=== PATIENT | female | born 2000 | race Hispanic/Latino ===

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

== ENCOUNTER 2020-12-02 14:13 | Emergency (ER) | payer SELFPAY ==
[2020-12-02 16:00] VITALS: BP 134/79
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
--- NOTE | 2020-12-02 17:13 | XRay Report ---
RIGHT FOOT 3 VIEWS INDICATION: foot pain/injury/heel pain. COMPARISON: No relevant prior imaging study available. FINDINGS: No acute fracture or dislocation is seen. No foreign bodies. IMPRESSION: 1. No acute findings. Signer Name: Hans Otoole MD Signed: 12/02/2020 5:09 PM Workstation Name: [id number]
== END 2020-12-02 18:47 | disposition home or self-care (01) ==
LOC: ED 14:13
DX: S93.601A Unspecified sprain of right foot, initial encounter (principal); Z79.1 Long term (current) use of non-steroidal anti-inflammatories (NSAID); Z79.899 Other long term (current) drug therapy; X58.XXXA Exposure to other specified factors, initial encounter; Y93.89 Activity, other specified; Y92.89 Other specified places as the place of occurrence of the external cause; Y99.8 Other external cause status

== ENCOUNTER 2021-04-17 15:22 | Emergency (ER) | payer SELFPAY ==
[2021-04-17] MEDS ORDERED: LIDOCAINE VISCOUS 2% 15 ML ORAL LIQD MM ONE (16:34)
[2021-04-17] MEDS ORDERED: ACETAMINOPHEN 500 MG TAB PO ONE (16:34)
[2021-04-17 18:02] VITALS: BP 122/79
--- NOTE | 2021-04-17 18:11 | Emergency Department Report ---
ED ENT HPI - General Chief complaint: Sore Throat Stated complaint: TONSILS SWOLLEN, BODY ACHES Time Seen by Provider: 04/17/21 16:33 Source: patient Mode of arrival: Ambulatory Limitations: No Limitations - History of Present Illness Initial comments: This is a 21-year-old female nontoxic, well nourished in appearance, no acute signs of distress presents to the ED with c/o of sore throat times several days. Patient describes sore throat as sharp. Patient denies any fever, chills, headache, stiff neck, nausea, vomiting, chest pain, shortness of breath, numbness or tingling. Patient denies any drooling or hoarseness. Patient denies any allergies or significant past medical history. MD complaint: sore throat -: days(s) Location: throat Severity: mild Severity scale (0 -10): 3 Quality: aching Consistency: constant Improves with: none Worsens with: swallowing Associated Symptoms: pain with swallowing, sore throat. denies: fever, cough, gum swelling, toothache, tinnitus, hearing loss, discharge from ear, rhinorrhea - Related Data Home Medications Medication Instructions Recorded Confirmed Last Taken Loperamide [Imodium] 2 mg PO 10/07/14 10/07/14 10/07/14 Previous Rx's Medication Instructions Recorded Last Taken Type Hyoscyamine Subl [Levsin Sl] 0.125 mg SL Q4HR PRN #20 tablet 10/08/14 Unknown Rx Fluconazole (Nf) [Diflucan TAB] 150 mg PO ONCE #1 tablet 11/25/18 Unknown Rx metroNIDAZOLE [Metronidazole] 500 mg PO BID #14 tablet 11/25/18 Unknown Rx Acetaminophen [Acetaminophen TAB] 500 mg PO Q6HR #30 tablet 12/02/20 Unknown Rx Ibuprofen [Motrin] 800 mg PO Q8HR PRN #30 tablet 12/02/20 Unknown Rx Naproxen 500 mg PO Q12H PRN #12 tablet 04/17/21 Unknown Rx Nystas/Diphen/Xyl Visc/Mylanta 15 ml MM Q6H PRN 5 Days #1 bottle 04/17/21 Unknown Rx [Magic Mouthwash] Allergies Allergy/AdvReac Type Severity Reaction Status Date / Time No Known Allergies Allergy Verified 04/17/21 15:28 ED Dental HPI - General Chief complaint: Sore Throat Stated complaint: TONSILS SWOLLEN, BODY ACHES Time Seen by Provider: 04/17/21 16:33 Source: patient Mode of arrival: Ambulatory Limitations: No Limitations - Related Data Home Medications Medication Instructions Recorded Confirmed Last Taken Loperamide [Imodium] 2 mg PO 10/07/14 10/07/14 10/07/14 Previous Rx's Medication Instructions Recorded Last Taken Type Hyoscyamine Subl [Levsin Sl] 0.125 mg SL Q4HR PRN #20 tablet 10/08/14 Unknown Rx Fluconazole (Nf) [Diflucan TAB] 150 mg PO ONCE #1 tablet 11/25/18 Unknown Rx metroNIDAZOLE [Metronidazole] 500 mg PO BID #14 tablet 11/25/18 Unknown Rx Acetaminophen [Acetaminophen TAB] 500 mg PO Q6HR #30 tablet 12/02/20 Unknown Rx Ibuprofen [Motrin] 800 mg PO Q8HR PRN #30 tablet 12/02/20 Unknown Rx Naproxen 500 mg PO Q12H PRN #12 tablet 04/17/21 Unknown Rx Nystas/Diphen/Xyl Visc/Mylanta 15 ml MM Q6H PRN 5 Days #1 bottle 04/17/21 Unknown Rx [Magic Mouthwash] Allergies Allergy/AdvReac Type Severity Reaction Status Date / Time No Known Allergies Allergy Verified 04/17/21 15:28 ED Review of Systems ROS: Stated complaint: TONSILS SWOLLEN, BODY ACHES Other details as noted in HPI Comment: All other systems reviewed and negative Constitutional: denies: chills, fever Eyes: denies: eye pain, eye discharge, vision change ENT: throat pain. denies: ear pain Respiratory: denies: cough, shortness of breath, wheezing Cardiovascular: denies: chest pain, palpitations Endocrine: no symptoms reported Gastrointestinal: denies: abdominal pain, nausea, diarrhea Genitourinary: denies: urgency, dysuria, discharge Musculoskeletal: denies: back pain, joint swelling, arthralgia Skin: denies: rash, lesions Neurological: denies: headache, weakness, paresthesias Psychiatric: denies: anxiety, depression Hematological/Lymphatic: denies: easy bleeding, easy bruising ED Past Medical Hx - Social History Smoking Status: Never Smoker Substance Use Type: None - Medications Home Medications: Home Medications Medication Instructions Recorded Confirmed Last Taken Type Loperamide [Imodium] 2 mg PO 10/07/14 10/07/14 10/07/14 History Hyoscyamine Subl [Levsin Sl] 0.125 mg SL Q4HR PRN #20 tablet 10/08/14 Unknown Rx Fluconazole (Nf) [Diflucan TAB] 150 mg PO ONCE #1 tablet 11/25/18 Unknown Rx metroNIDAZOLE [Metronidazole] 500 mg PO BID #14 tablet 11/25/18 Unknown Rx Acetaminophen [Acetaminophen TAB] 500 mg PO Q6HR #30 tablet 12/02/20 Unknown Rx Ibuprofen [Motrin] 800 mg PO Q8HR PRN #30 tablet 12/02/20 Unknown Rx Naproxen 500 mg PO Q12H PRN #12 tablet 04/17/21 Unknown Rx Nystas/Diphen/Xyl Visc/Mylanta 15 ml MM Q6H PRN 5 Days #1 bottle 04/17/21 Unknown Rx [Magic Mouthwash] ED Physical Exam - General Limitations: No Limitations General appearance: alert, in no apparent distress - Head Head exam: Present: atraumatic, normocephalic - Eye Eye exam: Present: normal appearance - Expanded ENT Exam Expanded Ear exam: Present: normal external inspection Mouth exam: Present: normal external inspection, tongue normal. Absent: drooling, trismus, muffled voice Teeth exam: Present: normal inspection Throat exam: Positive: tonsillar erythema, other (uvula midline). Negative: tonsillomegaly, tonsillar exudate, R peritonsillar mass, L peritonsillar mass - Neck Neck exam: Present: normal inspection, full ROM. Absent: tenderness, meningismus, lymphadenopathy - Respiratory Respiratory exam: Absent: respiratory distress - Cardiovascular Cardiovascular Exam: Present: regular rate - Extremities Exam Extremities exam: Present: normal inspection, full ROM, normal capillary refill. Absent: tenderness - Back Exam Back exam: Present: normal inspection, full ROM. Absent: tenderness, CVA tenderness (R), CVA tenderness (L), muscle spasm, paraspinal tenderness, vertebral tenderness, rash noted - Neurological Exam Neurological exam: Present: alert, oriented X3, normal gait - Psychiatric Psychiatric exam: Present: normal affect, normal mood - Skin Skin exam: Present: warm, dry, intact, normal color. Absent: rash ED Course Vital Signs 04/17/21 04/17/21 04/17/21 15:26 18:01 18:04 Temperature 99.1 F 98.9 F 98.9 F Pulse Rate 100 H 67 67 Respiratory 16 12 12 Rate Blood Pressure 122/79 Blood Pressure 137/85 122/79 [Left] O2 Sat by Pulse 95 97 97 Oximetry - Reevaluation(s) Reevaluation #1: 04/17/21 18:09 Patient is speaking in full sentences with no signs of distress noted. ED Medical Decision Making - Lab Data Lab Results 04/17/21 Range/Units Unknown Group A Strep Rapid Negative (Negative) - Medical Decision Making This is a 21-year-old female that presents with viral pharyngitis. Patient is stable was examined by me. There is no drooling. No tonsillar abscess noted. Uvula is midline. Negative strep test and patient is notified of the results with no questions noted by the patient. Vital signs are stable. Patient is not febrile and normal heart rate. Patient was instructed to Follow-up with a primary care doctor in 3-5 days or if symptoms worsen and continue return to emergency room as soon as possible. At time of discharge, the patient does not seem toxic or ill in appearance. No acute signs of distress noted. Patient agrees to discharge treatment plan of care. No further questions noted by the patient. Critical care attestation.: If time is entered above; I have spent that time in minutes in the direct care of this critically ill patient, excluding procedure time. ED Disposition Clinical Impression: Viral pharyngitis Disposition: 01 HOME / SELF CARE / HOMELESS Is pt being admited?: No Does the pt Need Aspirin: No Condition: Stable Instructions: Viral Respiratory Infection, [id number] Additional Instructions: Follow-up with a primary care doctor in 3-5 days or if symptoms worsen and continue return to emergency room as soon as possible. Increased rest, hydration, and take Motrin/Tylenol as prescribed for fever episode. Prescriptions: Nystas/Diphen/Xyl Visc/Mylanta [Magic Mouthwash] 15 ml MM Q6H PRN 5 Days #1 bottle PRN Reason: Sore Throat Naproxen 500 mg PO Q12H PRN #12 tablet PRN Reason: Pain , Severe (7-10) Referrals: PRIMARY MD JOSÉ [Referring] - 3-5 Days EDWARD MUÑOZ MD [Staff Physician] - 3-5 Days Forms: Work/School Release Form(ED) Time of Disposition: 18:10
== END 2021-04-17 18:16 | disposition home or self-care (01) ==
LOC: ED 15:22
DX: J02.8 Acute pharyngitis due to other specified organisms (principal); B97.89 Other viral agents as the cause of diseases classified elsewhere; Z79.899 Other long term (current) drug therapy
CPT/HCPCS: 87116; 87430; 99283

== ENCOUNTER 2022-03-25 11:15 | Emergency (ER) | payer MEDICAID ==
[2022-03-25] MEDS ORDERED: METOCLOPRAMIDE 10 MG/2 ML INJ IV ONE (16:02)
[2022-03-25] MEDS ORDERED: SODIUM CHLORIDE 0.9% 1000 ML 1,000 ML IV ONE (16:02)
--- NOTE | 2022-03-25 16:34 | Emergency Department Report ---
ED N/V/D HPI - General Chief complaint: Nausea/Vomiting/Diarrhea Stated complaint: 7WKS PREG NEED FLUIDS Time Seen by Provider: 03/25/22 16:01 Source: patient Mode of arrival: Ambulatory Limitations: No Limitations - History of Present Illness Initial comments: This is a 22-year-old female nontoxic, well nourished in appearance, no acute signs of distress presents to the ED with c/o of nausea and vomiting several days. Patient describes vomiting as food content. Stated is about is about 7 weeks . Denies any vaginal bleeding. Patient denies any abdominal pain, pelvic pain, flank pain, chest pain, short of breath, fever, chills, headache, stiff neck, numbness or tingling. Patient denies any diarrhea or constipation. Denies any blood in stool. Patient denies any recent travels. Patient denies any drug allergies significant past medical history. MD complaint: nausea, vomiting -: days(s) Associated Abdominal Pain: No Pain Scale: 0 Improves with: none Worsens with: none Associated Symptoms: nausea/vomiting. denies: myalgias, chest pain, cough, diaphoresis, fever/chills, headaches, loss of appetite, malaise, rash, dysuria, shortness of breath, syncope, weakness - Related Data Home Medications Medication Instructions Recorded Confirmed Last Taken Loperamide [Imodium] 2 mg PO 10/07/14 10/07/14 10/07/14 Previous Rx's Medication Instructions Recorded Last Taken Type Hyoscyamine Subl [Levsin Sl] 0.125 mg SL Q4HR PRN #20 tablet 10/08/14 Unknown Rx Fluconazole (Nf) [Diflucan TAB] 150 mg PO ONCE #1 tablet 11/25/18 Unknown Rx metroNIDAZOLE [Metronidazole] 500 mg PO BID #14 tablet 11/25/18 Unknown Rx Acetaminophen [Acetaminophen TAB] 500 mg PO Q6HR #30 tablet 12/02/20 Unknown Rx Ibuprofen [Motrin] 800 mg PO Q8HR PRN #30 tablet 12/02/20 Unknown Rx Naproxen 500 mg PO Q12H PRN #12 tablet 04/17/21 Unknown Rx Nystas/Diphen/Xyl Visc/Mylanta 15 ml MM Q6H PRN 5 Days #1 bottle 04/17/21 Unknown Rx [Magic Mouthwash] Metoclopramide [Reglan] 10 mg PO Q12H PRN #12 tab 03/25/22 Unknown Rx Allergies Allergy/AdvReac Type Severity Reaction Status Date / Time No Known Allergies Allergy Verified 03/25/22 11:36 ED Review of Systems ROS: Stated complaint: 7WKS PREG NEED FLUIDS Other details as noted in HPI Comment: All other systems reviewed and negative Constitutional: denies: chills, fever Eyes: denies: eye pain, eye discharge, vision change ENT: denies: ear pain, throat pain Respiratory: denies: cough, shortness of breath, wheezing Cardiovascular: denies: chest pain, palpitations Endocrine: no symptoms reported Gastrointestinal: nausea, vomiting. denies: abdominal pain, diarrhea, constipation, hematemesis, melena, hematochezia Genitourinary: denies: urgency, dysuria, discharge Musculoskeletal: denies: back pain, joint swelling, arthralgia Skin: denies: rash, lesions Neurological: denies: headache, weakness, paresthesias Psychiatric: denies: anxiety, depression Hematological/Lymphatic: denies: easy bleeding, easy bruising ED Past Medical Hx - Past Medical History Previous Medical History?: No - Surgical History Past Surgical History?: No - Social History Smoking Status: Never Smoker Substance Use Type: None - Medications Home Medications: Home Medications Medication Instructions Recorded Confirmed Last Taken Type Loperamide [Imodium] 2 mg PO 10/07/14 10/07/14 10/07/14 History Hyoscyamine Subl [Levsin Sl] 0.125 mg SL Q4HR PRN #20 tablet 10/08/14 Unknown Rx Fluconazole (Nf) [Diflucan TAB] 150 mg PO ONCE #1 tablet 11/25/18 Unknown Rx metroNIDAZOLE [Metronidazole] 500 mg PO BID #14 tablet 11/25/18 Unknown Rx Acetaminophen [Acetaminophen TAB] 500 mg PO Q6HR #30 tablet 12/02/20 Unknown Rx Ibuprofen [Motrin] 800 mg PO Q8HR PRN #30 tablet 12/02/20 Unknown Rx Naproxen 500 mg PO Q12H PRN #12 tablet 04/17/21 Unknown Rx Nystas/Diphen/Xyl Visc/Mylanta 15 ml MM Q6H PRN 5 Days #1 bottle 04/17/21 Unknown Rx [Magic Mouthwash] Metoclopramide [Reglan] 10 mg PO Q12H PRN #12 tab 03/25/22 Unknown Rx ED Physical Exam - General Limitations: No Limitations General appearance: alert, in no apparent distress - Head Head exam: Present: atraumatic, normocephalic - Eye Eye exam: Present: normal appearance - Neck Neck exam: Present: normal inspection, full ROM. Absent: lymphadenopathy - Respiratory Respiratory exam: Present: normal lung sounds bilaterally. Absent: respiratory distress, wheezes, rales, rhonchi, stridor, chest wall tenderness, accessory muscle use, decreased breath sounds, prolonged expiratory - Cardiovascular Cardiovascular Exam: Present: regular rate, normal rhythm, normal heart sounds. Absent: bradycardia, tachycardia, irregular rhythm, systolic murmur, diastolic murmur, rubs, gallop - GI/Abdominal GI/Abdominal exam: Present: soft, normal bowel sounds. Absent: distended, tenderness, guarding, rebound, rigid, diminished bowel sounds - Extremities Exam Extremities exam: Present: full ROM - Back Exam Back exam: Present: normal inspection, full ROM. Absent: tenderness, CVA tenderness (R), CVA tenderness (L), muscle spasm, paraspinal tenderness, vertebral tenderness, rash noted - Neurological Exam Neurological exam: Present: alert, oriented X3, normal gait - Psychiatric Psychiatric exam: Present: normal affect, normal mood - Skin Skin exam: Present: warm, dry, intact, normal color. Absent: rash ED Course Vital Signs 03/25/22 03/25/22 11:38 18:34 Temperature 98.6 F Pulse Rate 88 63 Respiratory 18 18 Rate Blood Pressure 144/88 104/65 [Right] O2 Sat by Pulse 100 100 Oximetry - Reevaluation(s) Reevaluation #1: 03/25/22 16:31 Patient is speaking in full sentences with no signs of distress noted. ED Medical Decision Making - Lab Data Result diagrams: 03/25/22 16:26 03/25/22 16:26 Lab Results 03/25/22 03/25/22 03/25/22 Range/Units 16:26 16:26 16:26 WBC 9.3 (4.5-11.0) K/mm3 RBC 5.41 H (3.65-5.03) M/mm3 Hgb 16.4 H (10.1-14.3) gm/dl Hct 48.7 H (30.3-42.9) % MCV 90 (79-97) fl MCH 30 (28-32) pg MCHC 34 (30-34) % RDW 12.8 L (13.2-15.2) % Plt Count 235 (140-440) K/mm3 Lymph % (Auto) 22.0 (13.4-35.0) % Wilcox % (Auto) 7.8 H (0.0-7.3) % Eos % (Auto) 0.3 (0.0-4.3) % Baso % (Auto) 1.3 (0.0-1.8) % Lymph # (Auto) 2.0 (1.2-5.4) K/mm3 Wilcox # (Auto) 0.7 (0.0-0.8) K/mm3 Eos # (Auto) 0.0 (0.0-0.4) K/mm3 Baso # (Auto) 0.1 (0.0-0.1) K/mm3 Seg Neutrophils % 68.6 (40.0-70.0) % Seg Neutrophils # 6.4 (1.8-7.7) K/mm3 Sodium 138 (137-145) mmol/L Potassium 3.6 (3.6-5.0) mmol/L Chloride 102.3 (98-107) mmol/L Carbon Dioxide 23 (22-30) mmol/L Anion Gap 16 mmol/L BUN 10 (7-17) mg/dL Creatinine 0.6 (0.6-1.2) mg/dL Estimated GFR > 60 ml/min BUN/Creatinine Ratio 17 % Glucose 85 (65-100) mg/dL Calcium 10.2 (8.4-10.2) mg/dL Total Bilirubin 0.50 (0.1-1.2) mg/dL Direct Bilirubin < 0.2 (0-0.2) mg/dL Indirect Bilirubin 0.3 mg/dL AST 21 (5-40) units/L ALT 20 (7-56) units/L Alkaline Phosphatase 90 (35-129) units/L Total Protein 8.1 (6.3-8.2) g/dL Albumin 5.3 H (3.9-5) g/dL Albumin/Globulin Ratio 1.9 % HCG, Quant 58913 H (0-4) mIU/mL - Medical Decision Making This is a 22-year-old female that presents with hyperemesis gravidarum. Patient is stable and was examined by me. There is no abdominal or pelvic t enderness. Labs obtained. UA obtained. Vital signs are stable prior to discharge. Patient received Reglan and 1L Normal saline in the ED which patient stated symptoms has resovled and subsided. A by mouth challenge has been obtained and patient tolerated well with no nausea vomiting. Patient was also instructed to Follow-up with a OBGYN doctor in 3-5 days or if symptoms worsen and continue return to emergency room as soon as possible. At time of discharge, the patient does not seem toxic or ill in appearance. No acute signs of distress noted. Patient agrees to discharge treatment plan of care. No further questions noted by the patient. Critical care attestation.: If time is entered above; I have spent that time in minutes in the direct care of this critically ill patient, excluding procedure time. ED Disposition Clinical Impression: Hyperemesis gravidarum Disposition: 01 HOME / SELF CARE / HOMELESS Is pt being admited?: No Does the pt Need Aspirin: No Condition: Stable Instructions: Hyperemesis Gravidarum Additional Instructions: Follow-up with a OBGYN doctor in 3-5 days or if symptoms worsen and continue return to emergency room as soon as possible. Prescriptions: Metoclopramide [Reglan] 10 mg PO Q12H PRN #12 tab PRN Reason: Nausea Referrals: [facility] [Primary Care Provider] - 3-5 Days [facility] [Provider Group] - 3-5 Days [facility] [Provider Group] - 3-5 Days Forms: Work/School Release Form(ED)
[2022-03-25 16:49] LABS: Alanine Aminotransferase 20 units/L (7-56); Albumin 5.3 g/dL (3.9-5); Blood Urea Nitrogen 10 mg/dL (7-17); Calcium 10.2 mg/dL (8.4-10.2); Hemolysis Index 26
[2022-03-25 16:53] LABS: Hematocrit 48.7 % (30.3-42.9); Hemoglobin 16.4 gm/dl (10.1-14.3); Mean Corpuscular HGB Conc 34 % (30-34); Mean Corpuscular Volume 90 fl (79-97); Monocytes % (Auto) 7.8 % (0.0-7.3); Platelet Count 235 K/mm3 (140-440); Red Blood Count 5.41 M/mm3 (3.65-5.03); Red Cell Distribution Width 12.8 % (13.2-15.2)
[2022-03-25 16:54] LABS: Basophils # (Auto) 0.1 K/mm3 (0.0-0.1); Basophils % (Auto) 1.3 % (0.0-1.8); Eosinophils % (Auto) 0.3 % (0.0-4.3); Monocytes # (Auto) 0.7 K/mm3 (0.0-0.8)
[2022-03-25 16:56] LABS: BUN/Creatinine Ratio 17; Bilirubin,Direct < 0.2 mg/dL (0-0.2)
[2022-03-25 18:35] VITALS: BP 104/65
== END 2022-03-25 18:00 | disposition home or self-care (01) ==
LOC: ED 11:15
DX: O21.0 Mild hyperemesis gravidarum (principal); Z3A.01 Less than 8 weeks gestation of pregnancy
CPT/HCPCS: 36415; 80048; 80076; 84702; 85025; 96361; 96374; 99283; J2765; J7030